=== PATIENT | female | born 1930 | race Caucasian/White ===

== ENCOUNTER 2018-07-25 15:33 | Inpatient (IN) | payer BC, MEDICARE ==
[~2018-07-25] VITALS: Ht 162.6 cm; Wt 57.6 kg
--- NOTE | 2018-07-25 15:45 | NUR ---
PT JACOB FROM [facility] FOR ABD PAIN MOSTLY VOMITING. FAMILY MEMBER AT . REPORTS THAT PT IS DNR. SEEN BY MD FOR EVAL. VSS. NAD NOTED. SAFETY AND COMFORT MEASURES PROVIDED. WILL MONITOR.
--- NOTE | 2018-07-25 15:55 | NUR ---
IV ACCESS STARTED. BLOOD DRAWN FOR LABS. MEDICATED ORDERED.
[2018-07-25] MEDS ORDERED: IV NS 0.9% 1,000 ML BAG IV ONE (16:00)
[2018-07-25] MEDS ORDERED: ONDANSETRON HCL/PF 4 MG/2 ML VIAL IVP ONE (16:00)
[2018-07-25 16:20] LABS: BASOPHILS # (AUTO) 0.4 /CMM (0.0-0.2); BASOPHILS % (AUTO) 3.3 % (0.0-2.0); HEMATOCRIT 41 % (33-45); HEMOGLOBIN 14.8 g/dL (11.5-14.8); LYMPHOCYTES % (AUTO) 16.3 % (20.0-44.0); MEAN CORPUSCULAR HGB CONC 36 g/dl (31.0-36.0); MEAN CORPUSCULAR VOLUME 93 fL (82-100); MONOCYTES # (AUTO) 0.9 /CMM (0.1-1.30); MONOCYTES % (AUTO) 7.4 % (2.0-12.0); NEUTROPHILS # (AUTO) 8.7 /CMM (1.8-8.9); PLATELET COUNT (AUTO) 202 /CMM (150-450); RDW COEFFICIENT OF VARIATION 15.3 (11.5-15.0); RED BLOOD CELL COUNT(AUTO) 4.35 MIL/uL (4.0-5.2); WHITE BLOOD COUNT (AUTO) 12.4 K/uL (4.3-11.0)
[2018-07-25 16:30] LABS: CARBON DIOXIDE 24 mmol/L (21-32); CHLORIDE 104 mmol/L (98-107); CREATININE 3.1 mg/dL (0.6-1.3); GLUCOSE 98 mg/dL (74-106); POTASSIUM 4.8 mmol/L (3.5-5.1); SODIUM SERUM 137 mmol/L (136-145); UREA NITROGEN, BLOOD 46 mg/dL (7-18)
[2018-07-25 16:34] LABS: INR 0.93 (0.85-1.15)
[2018-07-25 16:36] LABS: ALANINE AMINOTRANSFERASE 16 U/L (12-78); ALBUMIN 3.4 g/dL (3.4-5.0); ALKALINE PHOSPHATASE 113 U/L (46-116); ASPARTATE AMINOTRANSFERASE 26 U/L (15-37); BILIRUBIN,DIRECT 0.1 mg/dL (0.0-0.2); BILIRUBIN,TOTAL 0.5 mg/dL (0.2-1.0); LIPASE 98 U/L (73-393); TOTAL PROTEIN, SERUM 7.7 g/dL (6.4-8.2)
[2018-07-25 16:37] LABS: TROPONIN I < 0.017 ng/mL (0.00-0.056)
--- NOTE | 2018-07-25 16:50 | NUR ---
PT NOTED IN SOILED DIAPER. CLEANED AND CHANGED PER PROTOCOL. KEPT WARM AND DRY. FAMILY REMAINS AT BS. WILL MONITOR.
[2018-07-25] MEDS ORDERED: ONDANSETRON HCL/PF 4 MG/2 ML VIAL ONE (16:55)
[2018-07-25] MEDS ORDERED: IV NS 0.9% 1,000 ML IV ONE (17:00)
[2018-07-25] MEDS ORDERED: AMLO5TAB7 PO (17:14)
[2018-07-25] MEDS ORDERED: TRAM50TA2 PO (17:14)
[2018-07-25] MEDS ORDERED: DOCU100C36 PO (17:14)
[2018-07-25] MEDS ORDERED: PANT40TA4 PO (17:14)
[2018-07-25] MEDS ORDERED: CHOL50004 PO (17:14)
[2018-07-25] MEDS ORDERED: APIX2.5T PO (17:14)
[2018-07-25] MEDS ORDERED: MIRT15TA7 PO (17:14)
[2018-07-25] MEDS ORDERED: ONDA4TAB5 PO (17:14)
[2018-07-25] MEDS ORDERED: CALC0.253 PO (17:14)
[2018-07-25] MEDS ORDERED: CARV3.122 PO (17:14)
[2018-07-25 17:18] LABS: APPEARANCE,URINE Cloudy (CLEAR); BILIRUBIN,URINE Negative (NEGATIVE); BLOOD, URINE Trace-intact Ery/uL (NEGATIVE); COLOR,URINE Yellow (YELLOW); KETONES,URINE Negative (NEGATIVE); LEUKOCYTE ESTERASE ,URINE Large (NEGATIVE); NITRITE, URINE Negative (NEGATIVE); PH,URINE 7.5 (5.0-8.0); PROTEIN,URINE Trace mg/dl (NEGATIVE); UGLUCOSE Negative (NEGATIVE); UROBILINOGEN,URINE 0.2 EU/dL (0.2)
[2018-07-25 17:29] LABS: BACTERIA,URINE 1+ /HPF (None Seen); HYALINE CASTS, URINE Many /LPF (None Seen); RBC,URINE 0-2 /HPF (0-2); SQUAMOUS EPITHELIAL CELL,UR Few /HPF (None Seen); WBC,URINE TOO NUMEROUS TO COUN /HPF (0-3)
--- NOTE | 2018-07-25 17:37 | NUR ---
PT'S MARK- MILLA GIBBS
[2018-07-25] MEDS ORDERED: MAG HYDROX/AL HYDROX/SIMETH 30 ML UDC PO PRN (18:30)
[2018-07-25] MEDS ORDERED: Z GUARD REMEDY 2 OZ OINT TP PRN (18:30)
[2018-07-25] MEDS ORDERED: MAGNESIUM HYDROXIDE 30 ML UDC PO PRN (18:30)
[2018-07-25] MEDS ORDERED: ZOLPIDEM TARTRATE 5 MG TABLET PO PRN (18:30)
[2018-07-25] MEDS ORDERED: ACETAMINOPHEN 325 MG TABLET PO PRN (18:30)
[2018-07-25] MEDS ORDERED: HYDROCODONE/APAP 5/325MG 1 EACH TABLET PO PRN (18:30)
[2018-07-25] MEDS ORDERED: ONDANSETRON HCL/PF 4 MG/2 ML VIAL IVP PRN (18:30)
[2018-07-25] MEDS ORDERED: CEFTRIAXONE 1 G in IV D5W 50 ML IV SCH (18:30)
--- NOTE | 2018-07-25 19:12 | NUR ---
REPORT GIVEN TO CA GOMEZ FOR HANNAH.
--- NOTE | 2018-07-25 19:25 | NUR ---
RECEIVED REPORT FROM JASON PEACOCK FOR HANNAH. PT RESTING IN BED WITH NO S/S OF DISTRESS NOTED. WILL CONTINUE TO MONITOR PT.
--- NOTE | 2018-07-25 19:49 | NUR ---
REPORT GIVEN TO MARIBELL POLLACK FOR HANNAH.
[2018-07-25 20:30] VITALS: BP 142/90
[2018-07-25] MEDS ORDERED: CEFTRIAXONE 1 G VIAL ONE (20:54)
[2018-07-25] MEDS: IV NS 0.9% 1,000 ML IV PRN (21:12)
--- NOTE | 2018-07-25 21:52 | NUR ---
rocephen given on the floor er report stated they didnt give any atb while she was in the er only 2 liters ns and zofran.
[2018-07-26 00:01] VITALS: BP 132/64
[2018-07-26 04:00] VITALS: BP 105/57
--- NOTE | 2018-07-26 04:55 | NUR ---
ENDING NOTES: RECIEVED AT 07/25 FROM THE ER ALERT AND ORIENTATED. SHE VERBALLY TOLD ME SHE HAD A STROKE ALONG TIME AGO AND WAS NOW TALKING SLOW AND SHE WAS SORRY. SHE HAS GOOD EYE CONTACT AND SPEECH IS SLOW AND UNDERSTANDABLE. I NOTED SHE HAS TO FIND WORDS AT TIMES WHEN A QUESTION IS ASKED.. SHE MAD ME AWARE SHE WAS HUNGARY AND SHE ATE [employer] AAND [employer] 100% [employer] PRECAUTIONS. SHE DENIES PAIN THIS 12 HOURS. INCONTINENT UA KEPT CLEAN AND DRY. REVIEWED THE CALL LIGHT SYSTEM WITH HER, BUT I FEEL SHE WILL NOT USE THE CALL LIGHT. NOTED THRU THE NIGHT SHE CHANGED HER OWN POSITION, TURNING ON HER SIDES TO SLEEP. STARTED ROCEPHEN WHEN SHE ARRIVED TO THE FLOOR D/T I WAS TOLD NO ATB WAS STARTED IN THE ER GARRICKLY SHARON AND 2 LITERS NS GIVEN. AWARE SHE ALLERGIC TO LATEX
[2018-07-26 07:05] LABS: BASOPHILS % (AUTO) 0.3 % (0.0-2.0); EOSINOPHILS % (AUTO) 3.6 % (0.0-6.0); HEMATOCRIT 37 % (33-45); HEMOGLOBIN 11.8 g/dL (11.5-14.8); LYMPHOCYTES # (AUTO) 2.1 /CMM (0.8-4.8); LYMPHOCYTES % (AUTO) 17.3 % (20.0-44.0); MEAN CORPUSCULAR HGB CONC 32 g/dl (31.0-36.0); MEAN CORPUSCULAR VOLUME 96 fL (82-100); MONOCYTES # (AUTO) 0.9 /CMM (0.1-1.30); MONOCYTES % (AUTO) 7.8 % (2.0-12.0); NEUTROPHILS # (AUTO) 8.6 /CMM (1.8-8.9); PLATELET COUNT (AUTO) 229 /CMM (150-450); RED BLOOD CELL COUNT(AUTO) 3.84 MIL/uL (4.0-5.2); WHITE BLOOD COUNT (AUTO) 12.1 K/uL (4.3-11.0)
--- NOTE | 2018-07-26 07:17 | NUR ---
VENETIAN BLIND MECHANIC OPENING NOTE RECEIVED PATIENT IN BED. ALERT ORIENTED X3. ON ROOM AIR, TOLERATING WELL. IN NO APPARENT DISTRESS OR DISCOMFORT AT THIS TIME. RESPIRATIONS EVEN AND UNLABORED. DENIES PAIN AND SOB. ABLE TO COMMUNICATE NEEDS. SPEECH IS SLOW BUT CLEAR. PATIENT WITH PACEMAKER WITH AV PACING ON REGISTER OF WILLS. RIGHT HAND 22G IVC WITH FLUIDS RUNNING AT 75ML/HR, PATENT AND INTACT. KEPT CLEAN AND COMFORTABLE. ALL NEEDS ATTENDED. SAFETY MEASURES IN PLACE, BED IN LOW LOCKED POSITION, ALARM ON, SIDE RAILS UP X2, CALL LIGHT WITHIN EASY REACH. WILL CONTINUE TO MONITOR.
[2018-07-26 07:27] LABS: ALANINE AMINOTRANSFERASE 9 U/L (12-78); ALBUMIN 2.7 g/dL (3.4-5.0); ALKALINE PHOSPHATASE 86 U/L (46-116); ASPARTATE AMINOTRANSFERASE 14 U/L (15-37); BILIRUBIN,TOTAL 0.2 mg/dL (0.2-1.0); CALCIUM, SERUM 8.7 mg/dL (8.5-10.1); CARBON DIOXIDE 25 mmol/L (21-32); CHLORIDE 111 mmol/L (98-107); CREATININE 2.9 mg/dL (0.6-1.3); GLUCOSE 75 mg/dL (74-106); PHOSPHORUS 3.8 mg/dL (2.5-4.9); POTASSIUM 3.9 mmol/L (3.5-5.1); SODIUM SERUM 145 mmol/L (136-145); UREA NITROGEN, BLOOD 41 mg/dL (7-18)
[2018-07-26 07:34] LABS: CHOLESTEROL 149 mg/dL (<200); HDL CHOLESTEROL 44 mg/dL (40-60); LDL 91 mg/dL (0-99); TRIGLYCERIDES 109 mg/dL (30-150)
[2018-07-26 08:00] VITALS: BP 136/74
[2018-07-26 08:02] LABS: ABG BASE EXCESS 0.7 mmol/L; ABG OXYGEN SATURATION 93.9 % (92.0-98.5); ABG PCO2 32.5 mmHg (35.0-45.0); ABG PH 7.479 (7.350-7.450); ABG PO2 68.2 mmHg (75.0-100.0); AaDO2 42.6 mmHg; COHb 0.3 % (0.5-1.5); MetHb 0.8 % (0.0-1.5); O2Hb 92.9 % (94.0-97.0); SITE, ABG Left Radial; VENT MODE, BG ROOM AIR
[2018-07-26 08:56] LABS: TROPONIN I < 0.017 ng/mL (0.00-0.056)
[2018-07-26 09:04] LABS: IRON, SERUM 62 ug/dl (50-175); TOTAL IRON BINDING CAPACITY 234 ug/dl (250-450)
[2018-07-26] MEDS: IV NS 0.9% 1,000 ML IV PRN ×2 (09:16→21:53)
[2018-07-26 09:18] LABS: FERRITIN 25 ng/mL (8-388); THYROID STIMULATING HORMONE 56.692 uIU/mL (0.358-3.74)
[2018-07-26] MEDS ORDERED: ONDANSETRON 4 MG TAB.RAPDIS PO PRN (10:00)
[2018-07-26] MEDS: LEVOTHYROXINE SODIUM 100 MCG TABLET PO SCH (10:06)
[2018-07-26] MEDS: CHOLECALCIFEROL 1,000 UNIT TABLET (VIT D3) PO SCH (10:06)
[2018-07-26] MEDS: APIXABAN 2.5 MG TABLET PO SCH ×2 (10:06→18:00)
[2018-07-26 16:00] VITALS: BP 136/73
[2018-07-26 17:33] LABS: CREATININE, URINE 81.9 MG/DL (30.0-125.0)
[2018-07-26] MEDS: CARVEDILOL 3.125 MG TABLET PO SCH (18:09)
--- NOTE | 2018-07-26 19:06 | NUR ---
MS RN CLOSING NOTE PATIENT IN BED. ALERT ORIENTED X2-3. ON ROOM AIR, TOLERATING WELL. IN NO APPARENT DISTRESS OR DISCOMFORT AT THIS TIME. RESPIRATIONS EVEN AND UNLABORED. DENIES PAIN AND SOB. PATIENT HAS DIFFICULTY FORMING SENTENCES AND FINDING THE RIGHT WORDS BUT IS ABLE ABLE TO COMMUNICATE BASIC NEEDS AND ANSWER TO BASIC QUESTIONS . SPEECH IS SLOW BUT CLEAR. PATIENT WITH PACEMAKER. RIGHT HAND 22G IVC WITH FLUIDS RUNNING AT 75ML/HR, PATENT AND INTACT. KEPT CLEAN AND COMFORTABLE ALL ORDERS RENDERED. ALL NEEDS ATTENDED. SAFETY MEASURES IN PLACE, BED IN LOW LOCKED POSITION, ALARM ON, SIDE RAILS UP X2, CALL LIGHT WITHIN EASY REACH. WILL ENDORSE TO PM NURSE FOR HANNAH.
--- NOTE | 2018-07-26 19:39 | NUR ---
MS RN OPENING NOTE PT RECEIVED IN BED AT LOWEST AND LOCKED POSITION, A/O X2-3, HAS SOME DIFFICULTY SPEAKING/FINDING THE RIGHT WORDS, NO S/S OF PAIN OR DISTRESS NOTED, BREATHING IS CURRENTLY EVEN AND UNLABORED ON ROOM AIR, PT IS INCONTINENT AND WITH DIAPER, IV IS PATENT AND INTACT, SAFETY PRECAUTIONS IN PLACE, CALL LIGHT WITHIN REACH, WILL CONTINUE TO MONITOR.
[2018-07-26 20:00] VITALS: BP 118/69
[2018-07-26] MEDS: CEFTRIAXONE 1 G in IV D5W 50 ML IV SCH (20:16)
--- NOTE | 2018-07-26 20:30 | NUR ---
PT O2 sat was noted to be 87%, O2 via NC was put on and O2 sat went back up 95%. Will continue to monitor
[2018-07-26] MEDS: MIRTAZAPINE 15 MG TABLET PO SCH (21:53)
[2018-07-26] MEDS: DOCUSATE SODIUM 100 MG CAPSULE PO SCH (21:53)
--- NOTE | 2018-07-27 06:29 | NUR ---
MS RN CLOSING NOTE PT RECEIVED IN BED AT LOWEST AND LOCKED POSITION, A/O X2-3, HAS SOME DIFFICULTY SPEAKING/FINDING THE RIGHT WORDS, NO S/S OF PAIN OR DISTRESS NOTED, BREATHING IS CURRENTLY EVEN AND UNLABORED VIA NC 3L AND CURRENTLY SATTING 95%, PT IS INCONTINENT AND WITH DIAPER, IV IS PATENT AND INTACT, SAFETY PRECAUTIONS IN PLACE, ALL NEEDS ATTENDED TO, CALL LIGHT WITHIN REACH, WILL CONTINUE TO MONITOR AND ENDORSE TO DAY SHIFT FOR HANNAH.
[2018-07-27 06:53] LABS: BASOPHILS % (AUTO) 0.3 % (0.0-2.0); EOSINOPHILS % (AUTO) 2.6 % (0.0-6.0); HEMATOCRIT 39 % (33-45); HEMOGLOBIN 12.1 g/dL (11.5-14.8); LYMPHOCYTES # (AUTO) 2.2 /CMM (0.8-4.8); LYMPHOCYTES % (AUTO) 16.6 % (20.0-44.0); MEAN CORPUSCULAR HGB CONC 31 g/dl (31.0-36.0); MEAN CORPUSCULAR VOLUME 97 fL (82-100); MONOCYTES % (AUTO) 7.5 % (2.0-12.0); NEUTROPHILS # (AUTO) 9.5 /CMM (1.8-8.9); PLATELET COUNT (AUTO) 225 /CMM (150-450); RDW COEFFICIENT OF VARIATION 16.2 (11.5-15.0); RED BLOOD CELL COUNT(AUTO) 4.08 MIL/uL (4.0-5.2)
[2018-07-27 07:02] LABS: ALANINE AMINOTRANSFERASE 10 U/L (12-78); ALBUMIN 2.6 g/dL (3.4-5.0); ALKALINE PHOSPHATASE 79 U/L (46-116); ASPARTATE AMINOTRANSFERASE 17 U/L (15-37); BILIRUBIN,TOTAL 0.3 mg/dL (0.2-1.0); CALCIUM, SERUM 8.5 mg/dL (8.5-10.1); CARBON DIOXIDE 22 mmol/L (21-32); CHLORIDE 108 mmol/L (98-107); CREATININE 2.7 mg/dL (0.6-1.3); GLUCOSE 89 mg/dL (74-106); MAGNESIUM 1.8 mg/dL (1.8-2.4); PHOSPHORUS 4.4 mg/dL (2.5-4.9); POTASSIUM 4.5 mmol/L (3.5-5.1); SODIUM SERUM 142 mmol/L (136-145); UREA NITROGEN, BLOOD 42 mg/dL (7-18)
[2018-07-27 07:10] LABS: TROPONIN I < 0.017 ng/mL (0.00-0.056)
--- NOTE | 2018-07-27 07:39 | NUR ---
MS RN OPENING NOTE RECEIVED PATIENT IN BED. ALERT ORIENTED X2. ON 3L O2 VIA NC, TOLERATING WELL. IN NO APPARENT DISTRESS OR DISCOMFORT AT THIS TIME. RESPIRATIONS EVEN AND UNLABORED. DENIES PAIN AND SOB. PATIENT HAS DIFFICULTY FORMING SENTENCES AND FINDING THE RIGHT WORDS BUT IS ABLE ABLE TO COMMUNICATE BASIC NEEDS AND ANSWER TO BASIC QUESTIONS. SPEECH IS SLOW BUT CLEAR. PATIENT WITH PACEMAKER. RIGHT HAND 22G IVC WITH FLUIDS RUNNING AT 75ML/HR, PATENT AND INTACT. KEPT CLEAN AND COMFORTABLE. ALL NEEDS ATTENDED. SAFETY MEASURES IN PLACE, BED IN LOW LOCKED POSITION, ALARM ON, SIDE RAILS UP X2, CALL LIGHT WITHIN EASY REACH. WILL CONTINUE TO MONITOR.
[2018-07-27 08:00] VITALS: BP 128/74
[2018-07-27] MEDS: LEVOTHYROXINE SODIUM 100 MCG TABLET PO SCH (08:28)
[2018-07-27] MEDS: CHOLECALCIFEROL 1,000 UNIT TABLET (VIT D3) PO SCH (08:28)
[2018-07-27] MEDS: PANTOPRAZOLE 40 MG TABLET.DR PO SCH (08:28)
[2018-07-27] MEDS: CALCITRIOL 0.25 MCG CAPSULE PO SCH (08:28)
[2018-07-27] MEDS: AMLODIPINE BESYLATE 5 MG TABLET PO SCH (08:29)
[2018-07-27] MEDS: CARVEDILOL 3.125 MG TABLET PO SCH ×2 (08:29→18:06)
[2018-07-27 08:30] VITALS: BP 128/74
--- NOTE | 2018-07-27 08:40 | NUR ---
RECEIVED VERBAL ORDER FROM DR. BARNETT AT PATIENT'S BEDSIDE TO DISCONTINUE PATIENT'S IV HYDRATION. WILL CARRY OUT AND CONTINUE TO MONITOR.
--- NOTE | 2018-07-27 09:44 | NUR ---
ASKED DR BARNETT FOR PHYSICAL THERAPY EVALUATION FOR THE PATIENT. RECEIVED VERBAL ORDER FOR PT EVALUATION. WILL CARRY OUT AND CONTINUE TO MONITOR.
[2018-07-27] MEDS: APIXABAN 2.5 MG TABLET PO SCH ×2 (09:50→18:06)
[2018-07-27 10:54] VITALS: BP_SYST 122; BP_SYST 138; BP_SYST 148; BP_SYST 149; BP_DIAS 68; BP_DIAS 69; BP_DIAS 70; BP_DIAS 76
[2018-07-27 16:12] VITALS: BP 139/68
[2018-07-27] MEDS ORDERED: FUROSEMIDE 20 MG/2 ML VIAL IV SCH (17:00)
--- NOTE | 2018-07-27 19:30 | NUR ---
MS RN OPENING NOTE PT RECEIVED IN BED AT LOWEST AND LOCKED POSITION, A/O X2-3, HAS SOME DIFFICULTY SPEAKING/FINDING THE RIGHT WORDS, NO S/S OF PAIN OR DISTRESS NOTED, BREATHING IS CURRENTLY EVEN AND UNLABORED ON 3L VIA NC, PT IS INCONTINENT AND WITH DIAPER, IV IS PATENT AND INTACT, SAFETY PRECAUTIONS IN PLACE, CALL LIGHT WITHIN REACH, WILL CONTINUE TO MONITOR
--- NOTE | 2018-07-27 19:43 | NUR ---
MS RN CLOSING NOTE PATIENT IN BED. ALERT ORIENTED X2. ON 3L O2 VIA NC, TOLERATING WELL. IN NO APPARENT DISTRESS OR DISCOMFORT AT THIS TIME. RESPIRATIONS EVEN AND UNLABORED. DENIES PAIN AND SOB. PATIENT HAS DIFFICULTY FORMING SENTENCES AND FINDING THE RIGHT WORDS BUT IS ABLE ABLE TO COMMUNICATE BASIC NEEDS AND ANSWER TO BASIC QUESTIONS . SPEECH IS SLOW BUT CLEAR. PATIENT WITH PACEMAKER. RIGHT HAND 22G IVC SL, PATENT AND INTACT. KEPT CLEAN AND COMFORTABLE, ALL ORDERS RENDERED. ALL NEEDS ATTENDED. SAFETY MEASURES IN PLACE, BED IN LOW LOCKED POSITION, ALARM ON, SIDE RAILS UP X2, CALL LIGHT WITHIN EASY REACH. WILL ENDORSE TO PM NURSE FOR HANNAH.
[2018-07-27 20:00] VITALS: BP 148/74
[2018-07-27] MEDS: CEFTRIAXONE 1 G in IV D5W 50 ML IV SCH (20:08)
[2018-07-27] MEDS: DOCUSATE SODIUM 100 MG CAPSULE PO SCH (21:39)
[2018-07-27] MEDS: MIRTAZAPINE 15 MG TABLET PO SCH (21:39)
[2018-07-27] MEDS: IV NS 0.9% 1,000 ML IV PRN (23:38)
--- NOTE | 2018-07-28 03:30 | NUR ---
PT IV WAS NOTED TO BE LEAKING, FLUIDS WERE STOPPED AND IV ON THE RIGHT HAND WAS REMOVED, NEW IV WAS INSERTED BY MONA IN THE BOTTOM LEFT HAND 22G
--- NOTE | 2018-07-28 07:05 | NUR ---
MS RN CLOSING NOTE PT LAYING IN BED AT LOWEST AND LOCKED POSITION, A/O X2-3, HAS SOME DIFFICULTY SPEAKING/FINDING THE RIGHT WORDS, NO S/S OF PAIN OR DISTRESS NOTED, BREATHING IS CURRENTLY EVEN AND UNLABORED ON 3L VIA NC, PT IS INCONTINENT AND WITH DIAPER, IV IS PATENT AND INTACT, SAFETY PRECAUTIONS IN PLACE, CALL LIGHT WITHIN REACH, ALL NEEDS ATTENDED TO, WILL ENDORSE TO DAY SHIFT HANNAH.
[2018-07-28 08:00] VITALS: BP 153/84
[2018-07-28] MEDS: AMLODIPINE BESYLATE 5 MG TABLET PO SCH (09:05)
[2018-07-28] MEDS: CARVEDILOL 3.125 MG TABLET PO SCH ×2 (09:08→17:00)
[2018-07-28] MEDS: CHOLECALCIFEROL 1,000 UNIT TABLET (VIT D3) PO SCH (09:08)
[2018-07-28] MEDS: PANTOPRAZOLE 40 MG TABLET.DR PO SCH (09:08)
[2018-07-28] MEDS: LEVOTHYROXINE SODIUM 100 MCG TABLET PO SCH (09:08)
[2018-07-28] MEDS: APIXABAN 2.5 MG TABLET PO SCH ×2 (09:08→17:37)
[2018-07-28] MEDS: CALCITRIOL 0.25 MCG CAPSULE PO SCH (09:09)
--- NOTE | 2018-07-28 10:15 | NUR ---
recently started iv lt. wrist infiltrated and with multiple attempts new iv start #24 rt. forearm,will monitor.lt. wrist iv dc'd.
[2018-07-28 16:00] VITALS: BP 117/63
--- NOTE | 2018-07-28 17:00 | NUR ---
remains in isolation for mrsa,bactroban started.niece in to visit.no changes.poor appetite at dinner.
[2018-07-28] MEDS: MUPIROCIN OINT 2% 22 GM TUBE SCH ×2 (17:37→22:08)
[2018-07-28] MEDS: IV NS 0.9% 1,000 ML IV PRN (18:36)
--- NOTE | 2018-07-28 19:30 | NUR ---
MSRN SLEEPING , EASILY AROUSABLE. NO NEEDS FOR NOW, NEEDS CLOSER OBSERVATION AND FREQ CHECK. CONFUSED, RE ORIENTED. REPOSITIONED. TO CONTINUE.
[2018-07-28 20:00] VITALS: BP 170/75
--- NOTE | 2018-07-28 21:50 | NUR ---
MSRN FULLY AWAKE, DUE MEDS GIVEN NO DIFFICULTY SWALLOWING, PUDDINGS OFFERED ATE 100%. REPOSITIONED, KEPT DRY CLEAN AND COMFORTABLE. BOTH HEELS ELEVATED ON A PILLOW.
[2018-07-28] MEDS: MIRTAZAPINE 15 MG TABLET PO SCH (22:07)
[2018-07-28] MEDS: CEFTRIAXONE 1 G in IV D5W 50 ML IV SCH (22:07)
[2018-07-28] MEDS: DOCUSATE SODIUM 100 MG CAPSULE PO SCH (22:07)
--- NOTE | 2018-07-29 06:47 | NUR ---
MSRN SLEPT THROUGHOUT THE NIGHT, STABLE.
--- NOTE | 2018-07-29 07:15 | NUR ---
MS RN OPENING NOTE RECEIVED PT IN BED, SLEEPING AND EASILY AROUSABLE. PT IS ALERT AND ORIENTED X 1-2, BREATHING IS EVEN AND UNLABORED ON ROOM AIR. NO SIGNS OF ACUTE DISTRESS NOTED AT THIS TIME. R FA #24G IV IS INFUSING NS @ 75 ML/HR WITHOUT REDNESS OR SWELLING. BED IS LOCKED AND IN LOWEST POSITION, SIDE RAILS UP X3, BED ALARM IS ON, CALL LIGHT IS WITHIN REACH. WILL CONTINUE TO MONITOR.
[2018-07-29] MEDS: PANTOPRAZOLE 40 MG TABLET.DR PO SCH (07:41)
[2018-07-29] MEDS: LEVOTHYROXINE SODIUM 100 MCG TABLET PO SCH (07:41)
[2018-07-29 08:00] VITALS: BP 159/80
[2018-07-29] MEDS: IV NS 0.9% 1,000 ML IV PRN ×2 (08:54→21:46)
[2018-07-29] MEDS: AMLODIPINE BESYLATE 5 MG TABLET PO SCH (08:54)
[2018-07-29] MEDS: CARVEDILOL 3.125 MG TABLET PO SCH ×2 (08:55→16:26)
[2018-07-29] MEDS: APIXABAN 2.5 MG TABLET PO SCH ×2 (08:55→16:26)
[2018-07-29] MEDS: MUPIROCIN OINT 2% 22 GM TUBE SCH ×2 (08:55→21:23)
[2018-07-29] MEDS: CHOLECALCIFEROL 1,000 UNIT TABLET (VIT D3) PO SCH (08:55)
[2018-07-29] MEDS: CALCITRIOL 0.25 MCG CAPSULE PO SCH (08:58)
[2018-07-29 16:00] VITALS: BP_SYST 130; BP_SYST 134; BP_SYST 98; BP_DIAS 50; BP_DIAS 73
--- NOTE | 2018-07-29 18:44 | NUR ---
MS RN CLOSING NOTE PT IN BED, SLEEPING AND EASILY AROUSABLE. ALERT AND ORIENTED X1-2. NO SIGNS OF ACUTE DISTRESS, BREATHING IS EVEN AND UNLABORED ON 2 LC. R FA #24G IV IS INFUSING NS @ 75 ML/HR WITHOUT REDNESS OR SWELLING. PLANS FOR POSSIBLE D/C TOMORROW. PT TURNED AND REPOSITIONED Q2H THROUGHOUT THE SHIFT, ADLS PROVIDED, CONTACT PRECAUTIONS MAINTAINED. BED IS LOCKED AND IN LOWEST POSITION, SIDE RAILS UP X3, BED ALARM ON, CALL LIGHT IS WITHIN REACH. WILL ENDORSE TO CLAY MOLDER RN FOR CONTINUITY OF CARE.
--- NOTE | 2018-07-29 19:25 | NUR ---
MS RN NOTES RECEIVED PT IN BED, AWAKE, A/O X 1-2, VERBALLY RESPONSIVE. NO ACUTE DISTRESS NOR SOB AT THIS TIME. IV SITE ON RFA INTACT AND PATENT, NO S/S OF INFILTRATION NOTED, IVF INFUSING WELL. NO C/O PAIN OR DISCOMFORT AT THIS TIME. ALL NEEDS ATTENDED AND MET. COMFORTABLE VERBALIZED. SAFETY PRECAUTIONS OBSERVED. CALL LIGHT WITHIN REACH. WILL CONTINUE TO MONITOR.
[2018-07-29 20:00] VITALS: BP 154/85
[2018-07-29 20:29] VITALS: BP 154/85
[2018-07-29] MEDS: CEFTRIAXONE 1 G in IV D5W 50 ML IV SCH (21:21)
[2018-07-29] MEDS: DOCUSATE SODIUM 100 MG CAPSULE PO SCH (21:22)
[2018-07-29] MEDS: MIRTAZAPINE 15 MG TABLET PO SCH (21:22)
--- NOTE | 2018-07-30 06:42 | NUR ---
MS RN NOTES PT IN BED, RESTING AT THIS TIME, APPEARS COMFORTABLE. A/O X 1-2, VERBALLY RESPONSIVE. NO ACUTE DISTRESS NOR SOB AT THIS TIME. IV SITE ON RFA INTACT AND PATENT, NO S/S OF INFILTRATION NOTED, IVF INFUSING WELL. NO C/O PAIN OR DISCOMFORT AT THIS TIME. ALL NEEDS ATTENDED AND MET. COMFORTABLE VERBALIZED. SAFETY PRECAUTIONS OBSERVED. CALL LIGHT WITHIN REACH. WILL ENDORSE TO NEXT SHIFT ACCORDINGLY.
[2018-07-30 07:00] VITALS: BP 157/87
[2018-07-30 07:01] VITALS: BP 150/78
--- NOTE | 2018-07-30 07:10 | NUR ---
MS RN OPENING NOTE RECEIVED PT IN BED, ALERT AND ORIENTED X1-2. NO SIGNS OF ACUTE DISTRESS NOTED, BREATHING IS EVEN AND UNLABORED ON 2L NC. R FA #24G IV IS INFUSING NS @ 75ML/HR WITHOUT REDNESS OR SWELLING. CONTACT PRECAUTIONS MAINTAINED. BED IS LOCKED AND IN LOWEST POSITION, SIDE RAILS UP X2, BED ALARM IS ON, CALL LIGHT IS WITHIN REACH. WILL CONTINUE TO MONITOR.
[2018-07-30] MEDS: LEVOTHYROXINE SODIUM 100 MCG TABLET PO SCH (07:31)
[2018-07-30] MEDS: PANTOPRAZOLE 40 MG TABLET.DR PO SCH (07:31)
[2018-07-30 08:00] VITALS: BP_SYST 152; BP_SYST 154; BP_DIAS 85
[2018-07-30] MEDS: CARVEDILOL 3.125 MG TABLET PO SCH ×2 (08:48→16:37)
[2018-07-30] MEDS: APIXABAN 2.5 MG TABLET PO SCH ×2 (08:50→16:37)
[2018-07-30] MEDS: CHOLECALCIFEROL 1,000 UNIT TABLET (VIT D3) PO SCH (08:50)
[2018-07-30] MEDS: AMLODIPINE BESYLATE 5 MG TABLET PO SCH (08:50)
[2018-07-30] MEDS: CALCITRIOL 0.25 MCG CAPSULE PO SCH (08:50)
[2018-07-30] MEDS: MUPIROCIN OINT 2% 22 GM TUBE SCH (08:51)
[2018-07-30] MEDS ORDERED: MUPI22OI7 (13:19)
[2018-07-30] MEDS ORDERED: CEFT1VIA14 IJ (13:21)
[2018-07-30 15:15] LABS: ALANINE AMINOTRANSFERASE 17 U/L (12-78); ALBUMIN 2.6 g/dL (3.4-5.0); ALKALINE PHOSPHATASE 86 U/L (46-116); ASPARTATE AMINOTRANSFERASE 19 U/L (15-37); BILIRUBIN,TOTAL 0.2 mg/dL (0.2-1.0); CALCIUM, SERUM 8.5 mg/dL (8.5-10.1); CARBON DIOXIDE 23 mmol/L (21-32); CHLORIDE 110 mmol/L (98-107); CREATININE 2.1 mg/dL (0.6-1.3); GLUCOSE 107 mg/dL (74-106); LIPASE 75 U/L (73-393); MAGNESIUM 1.8 mg/dL (1.8-2.4); PHOSPHORUS 3.3 mg/dL (2.5-4.9); POTASSIUM 3.8 mmol/L (3.5-5.1); SODIUM SERUM 144 mmol/L (136-145); TOTAL PROTEIN, SERUM 6.3 g/dL (6.4-8.2); UREA NITROGEN, BLOOD 26 mg/dL (7-18)
[2018-07-30 16:00] VITALS: BP 137/70
[2018-07-30 16:37] VITALS: BP 137/70
[2018-07-30 17:34] LABS: BASOPHILS % (AUTO) 0.5 % (0.0-2.0); HEMATOCRIT 39 % (33-45); HEMOGLOBIN 12.8 g/dL (11.5-14.8); LYMPHOCYTES % (AUTO) 9.9 % (20.0-44.0); MEAN CORPUSCULAR HGB CONC 33 g/dl (31.0-36.0); MEAN CORPUSCULAR VOLUME 95 fL (82-100); MONOCYTES % (AUTO) 8.5 % (2.0-12.0); NEUTROPHILS % (AUTO) 78.1 % (43.0-81.0); PLATELET COUNT (AUTO) 228 /CMM (150-450); RDW COEFFICIENT OF VARIATION 15.3 (11.5-15.0); RED BLOOD CELL COUNT(AUTO) 4.06 MIL/uL (4.0-5.2); WHITE BLOOD COUNT (AUTO) 13.6 K/uL (4.3-11.0)
[2018-07-30 17:35] LABS: BASOPHILS # (AUTO) 0.1 /CMM (0.0-0.2); LYMPHOCYTES # (AUTO) 1.3 /CMM (0.8-4.8); MONOCYTES # (AUTO) 1.2 /CMM (0.1-1.30); NEUTROPHILS # (AUTO) 10.6 /CMM (1.8-8.9)
--- NOTE | 2018-07-30 19:00 | NUR ---
MS CASTER HELPER NOTE PT D/C TO [facility] VIA AMBULANCE. DANIELLE MILLA NOTIFIED BY ADRIAN IN CASE MANAGEMENT. PT IS MEDICALLY STABLE, VS WNL. NO SIGNS OF ACUTE DISTRESS, BREATHING IS EVEN AND UNLABORED ON ROOM AIR. DISCHARGE PAPERWORK AND PRESCRIPTION PROVIDED PER PROTOCOL. PT HAS A FOLLOW UP AP[facility]MENT ON August [facility]. PERSONAL BELONGINGS ACCOUNTED FOR AND BELONGINGS LIST SIGNED AND PLACED IN CHART. R FA #24G IV REMOVED WITH CATHETER INTACT. REPORT GIVEN TO AMBULANCE STAFF.
== END 2018-07-30 19:06 | disposition home or self-care (01) | DRG 682 ==
LOC: ER 15:34 → TELE 19:51 → MED 07-26 08:58
PROVIDERS: ADMIT Internal Medicine; ATTEND Internal Medicine
DX: N17.0 Acute kidney failure with tubular necrosis (principal); J15.9 Unspecified bacterial pneumonia; N39.0 Urinary tract infection, site not specified; G90.8 Other disorders of autonomic nervous system; I12.9 Hypertensive chronic kidney disease with stage 1 through stage 4 chronic kidney disease, or unspecified chronic kidney disease; N18.9 Chronic kidney disease, unspecified; I48.91 Unspecified atrial fibrillation; E78.5 Hyperlipidemia, unspecified; E03.9 Hypothyroidism, unspecified; Z95.0 Presence of cardiac pacemaker; Z90.710 Acquired absence of both cervix and uterus; Z79.01 Long term (current) use of anticoagulants; Z79.899 Other long term (current) drug therapy; Z91.040 Latex allergy status; I69.320 Aphasia following cerebral infarction; E86.0 Dehydration; F03.90 Unspecified dementia, unspecified severity, without behavioral disturbance, psychotic disturbance, mood disturbance, and anxiety; M85.9 Disorder of bone density and structure, unspecified
CPT/HCPCS: 36415; 36600; 71045-TC; 80048-TC; 80053-TC; 80061-TC; 80076-TC; 81000-TC; 82570-TC; 82728-TC; 83540-TC; 83690-TC; 83735-TC; 84100-TC; 84300-TC; 84439-TC; 84443-TC; 84484-TC; 85025-TC; 85730-TC; 87081-TC; 87086-TC; 93307-TC; A4606; J0696; J2405; J7030; J7060; Z7610